=== PATIENT | male | born 1960 | race Caucasian/White ===

== ENCOUNTER 2017-12-26 09:20 | Outpatient (CLI) ==
--- NOTE | 2017-12-26 10:43 | DI ---
EXAM: Five views of the lumbar spine. History: Chronic lower back pain. Findings: No acute fracture or subluxation of the lumbar spine. Mild multilevel degenerative disc sp tiago narrowing and mild to moderate facet hypertrophy in the lower lumbar spine. Impression: 1. No acute osseous abnormality of the lumbar spine. 2. Mild to moderate degenerative changes
== END 2017-12-26 09:21 | disposition home or self-care (01) ==
LOC: RAD 09:20
PROVIDERS: ATTEND Family Medicine
DX: M54.5 Low back pain (principal); G89.29 Other chronic pain

== ENCOUNTER 2018-07-03 11:03 | Outpatient (CLI) ==
--- NOTE | 2018-07-03 17:40 | DI ---
EXAM: Three views of the right shoulder HISTORY: Acute right shoulder pain COMPARISON: 01/23/2010 FINDINGS: No fracture or dislocation is identified. The joint spaces are maintained. No gross soft tissue abn ormality is evident. IMPRESSION: Unremarkable right shoulder radiographs.
== END 2018-07-03 11:04 | disposition home or self-care (01) ==
LOC: RAD 11:03
PROVIDERS: ATTEND Family Medicine
DX: M25.511 Pain in right shoulder (principal)

== ENCOUNTER 2018-07-10 07:54 | Outpatient (CLI) ==
--- NOTE | 2018-07-10 09:54 | MRI ---
EXAM: MRI right shoulder without contrast. HISTORY: Acute right shoulder pain. No recent injury. States injured the long time ago. No right shoulder surgery reported. Painful range of motion.. TECHNIQUE: Using a local coil on a high field strength magnet multiplanar multisequence MRI was perf ormed of the right shoulder without intravenous or intra-articular gadolinium contrast.. COMPARISON: Three-view plain film examination right shoulder 07/03/2018. FINDINGS: A Type I acromion. Coracoacromial ligament/arch intact with some thickening. Mild right acromioclavicular joint arthrosis. Fatty infiltration deltoid muscle. Trace fluid subacromial/subde ltoid bursa. Muscle bulk of the rotator cuff shows no acute muscle strain or overt atrophy. Supraspinatus tendino sis. Bursal sided fraying/shallow partial thickness bursal sided tearing. Some insertional tendinos is cranial infraspinatus. No full-thickness rotator cuff tear identified. Posterior inferior intact teres minor tendon fibers. Anterior tiny slit-like partial thickness rim rent tearing cranial inser tional subscapularis fibers. The long head of the biceps tendon shows intact fibers located in expec dwayne position within the bicipital groove and within normal limit in signal intensity and morphology. The right humeral head is within normal limit in morphology and seated. No right glenohumeral joint centered subchondral bone marrow edema or bone erosions. Physiologic amount of fluid right glenohume ral joint. Right glenoid labrum grossly intact on this non-arthrographic examination.. IMPRESSION: Mild right acromioclavicular joint arthrosis. Supraspinatus tendinosis with bursal sided fraying/shallow partial thickness bursal sided tearing. S ome insertional tendinosis cranial infraspinatus. No full-thickness rotator cuff tear identified. T race fluid subacromial/subdeltoid bursa may reflect an overlying degree bursitis and/or be sequelae o f prior shoulder injection. Correlate clinically. Anterior tiny slit-like partial thickness rim rent tearing cranial insertional subscapularis fibers. Intact long head biceps tendon.
== END 2018-07-10 07:55 | disposition home or self-care (01) ==
LOC: RAD 07:54
PROVIDERS: ATTEND Family Medicine
DX: M25.511 Pain in right shoulder (principal)

== ENCOUNTER 2019-04-20 07:36 | Day surgery (SDC) ==
[2019-04-20] MEDS ORDERED: LIDOCAINE 1% 20 ML MDV ID STA (08:00)
[2019-04-20 08:04] VITALS: TEMP 97.4
[2019-04-20] MEDS ORDERED: DIPRIVAN 20 ML VIAL IVP ONE (10:15)
[2019-04-20 10:54] VITALS: BP 98/46
--- NOTE | 2019-04-21 10:38 | OP ---
INDICATIONS FOR PROCEDURE: 58-year-old gentleman presents for colonoscopy exam. He has had a little bit of bright red blood per rectum. He has a remote history of colon polyps found by Dr. King four and one-half years ago. He had adenomas. MEDICATIONS: SEE ANESTHESIA NOTES. PROCEDURE: COLONOSCOPY, SNARE POLYPECTOMY. REPORT: The risks, benefits, alternatives and limitations were discussed in detail with the patient. Informed consent was obtained. After adequate sedation was achieved, a digital rectal exam revealed good tone, no masses. The colonoscope was introduced into the rectum and advanced under direct visual guidance to the cecum. The cecum was identified by the appendiceal orifice and IC valve. I then slowly withdrew the scope in a circumferential manner examining the mucosa quite carefully. I looked on the proximal and distal side of folds and flexures as best as possible. I was able to retroflex the scope in the right colon as well as the left colon to increase visualization. In the proximal transverse colon there was a 6 mm semi sessile polyp. I removed this with snare technique. The remaining colon was unremarkable except on retroflex view of the anal canal there was a small nonengorged hemorrhoidal vein. The prep was good. The withdrawal time was 10 minutes and 37 seconds. The patient tolerated the procedure well with stable vital signs and pulse oximetry throughout. IMPRESSION: 1. Small polyp removed from the proximal transverse colon. 2. Small nonengorged internal hemorrhoid. RECOMMENDATIONS: 1. High fiber diet. 2. Office visit as needed. 3. Await polyp pathology. If everything is benign as expected, I suggest surveillance colonoscopy examination again in 5 years. 4. Okay to restart Coumadin today with the usual standard precautions given to patient. CC: DR. THANIA MORTON
== END 2019-04-20 11:35 | disposition home or self-care (01) ==
LOC: SURG 07:36
PROVIDERS: ATTEND Internal Medicine Gastroenterology
DX: K62.5 Hemorrhage of anus and rectum (principal); K64.8 Other hemorrhoids; K63.5 Polyp of colon; D12.3 Benign neoplasm of transverse colon